=== PATIENT | female | born 1935 | race Caucasian/White ===

== ENCOUNTER 2025-01-05 14:47 | Emergency (ER) | payer OTHER, MEDICAID ==
[~2025-01-05] VITALS: Ht 162.6 cm; Wt 60.0 kg
[2025-01-05 14:50] VITALS: O2SAT 98
[2025-01-05 14:59] VITALS: BP 153/131; PULSE 115; RESP 16; O2SAT 92
[2025-01-05] MEDS ORDERED: NOREPINEPHRINE 8MG/250ML PMX 250 ML IV ONE ×2 (15:00→15:30)
[2025-01-05] MEDS ORDERED: DOPAMINE 400MG/250ML PREMIX 250 ML IV ONE ×2 (15:00→15:15)
[2025-01-05] MEDS ORDERED: SODIUM CHLORIDE 0.9% (SEPSIS BOLUS) IV ONE (15:00)
[2025-01-05] MEDS ORDERED: PIPERACILLIN/TAZO 3.375G/50ML 50 ML IV ONE (15:00)
[2025-01-05] MEDS ORDERED: VANCOMYCIN 1G PREMIX 200 ML IV ONE (15:00)
[2025-01-05] MEDS ORDERED: TENECTEPLASE 50MG/VIAL (FOR MI OR PE) IV ONE (15:15)
[2025-01-05] MEDS ORDERED: *TENECTEPLASE FOR AIS XX SCH (15:45)
[2025-01-05] MEDS ORDERED: TENECTEPLASE 50MG/VIAL (FOR MI OR PE) IV SCH (19:00)
== END 2025-01-05 15:53 ==
LOC: ER 15:01 → EDBD 15:01 → ER 15:53 → CANBEDREQ 15:58
DX: I46.9 Cardiac arrest, cause unspecified (principal); I21.3 ST elevation (STEMI) myocardial infarction of unspecified site; R07.9 Chest pain, unspecified
CPT/HCPCS: 99291; 92950; 94070; 31500; 82962; 31720; 93005; J3101; J7030; J1265; 86850